=== PATIENT | female | born 1975 | race Caucasian/White ===

== ENCOUNTER 2019-05-02 07:15 | Inpatient (IN) | payer BC ==
[~2019-05-02 07:15] MED LIST: cefOXitin 2 GM Vial ONE
[2019-05-02] MEDS ORDERED: fentaNYL 250 MCG/5 ML SDV ONE ×3 (09:28→14:07)
[2019-05-02] MEDS ORDERED: Glycopyrrolate 0.2 MG/ML 5 ML MDV ONE (09:29)
[2019-05-02] MEDS ORDERED: Ondansetron 4 MG/2 ML SDV ONE (09:29)
[2019-05-02] MEDS ORDERED: Dexamethasone 4 MG/ML SDV ONE (09:29)
[2019-05-02] MEDS ORDERED: Propofol 200 MG/20 ML SDV ONE (09:29)
[2019-05-02] MEDS ORDERED: Rocuronium 50 MG/5 ML Vial ONE (09:29)
[2019-05-02] MEDS ORDERED: Neostigmine Methylsulfate 1 MG/ML 5 ML Syringe ONE (09:29)
[2019-05-02] MEDS ORDERED: Succinylcholine 200 MG/10 ML MDV ONE (09:29)
[2019-05-02] MEDS ORDERED: Celecoxib 200 MG Cap PO ONE (09:30)
[2019-05-02] MEDS ORDERED: Scopolamine 1.5 MG Transdermal Patch TOP SCH (09:30)
[2019-05-02] MEDS ORDERED: Gabapentin 300 MG Cap PO ONE (09:30)
[2019-05-02] MEDS ORDERED: Lactated Ringers 1,000 ML ONE ×2 (09:30→14:41)
[2019-05-02] MEDS ORDERED: Acetaminophen 500 MG Tab PO ONE (09:30)
[2019-05-02 10:23] LABS: HEMOGLOBIN A1C 6.8 % (4.5-6.2)
[2019-05-02] MEDS ORDERED: Dextrose 5%-Lactated Ringers 1,000 ML IV SCH ×2 (10:30→17:15)
[2019-05-02] MEDS: cefOXitin 2 GM in Sodium Chloride 0.9% 50 ML IV ONE ×2 (11:14→17:17)
[2019-05-02] MEDS ORDERED: Lidocaine 2% 100 MG/5 ML Syringe IVPUSH SCH (11:15)
[2019-05-02] MEDS ORDERED: Lidocaine 0.4%/D5W 2 GM/500 ML BAG IV SCH (11:15)
[2019-05-02] MEDS ORDERED: Ketamine 50 MG in Sodium Chloride 0.9% 49.5 ML IV SCH (11:15)
[2019-05-02] MEDS ORDERED: Ketamine 500 MG/5 ML MDV IV SCH (11:15)
[2019-05-02] MEDS ORDERED: Labetalol 20 MG/4 ML Syringe IVPUSH PRN (17:12)
[2019-05-02] MEDS ORDERED: diphenhydrAMINE 50 MG/ML SDV IVPUSH PRN (17:12)
[2019-05-02] MEDS ORDERED: Glucagon,Human Recombinant 1 MG Vial IM PRN (17:12)
[2019-05-02] MEDS ORDERED: 50% Dextrose in Water 50 ML Syringe IVPUSH PRN (17:12)
[2019-05-02] MEDS ORDERED: HYDROmorphone 1 MG/ML Syringe IV PRN (17:12)
[2019-05-02] MEDS ORDERED: Albuterol/Ipratropium 3.0-0.5 MG/3 ML Neb Soln INH PRN (17:12)
[2019-05-02] MEDS ORDERED: hydrOXYzine HCL 100 MG/2 ML SDV IM PRN (17:12)
[2019-05-02] MEDS ORDERED: Lactated Ringers 1,000 ML IV SCH (17:15)
[2019-05-02] MEDS: Ondansetron 4 MG/2 ML SDV IVPUSH PRN (17:45)
[2019-05-02] MEDS ORDERED: MVI, Adult with Vitamin K 10 ML, Thiamine 200 MG, Chromium/Copper/Mang/Selen/Zn 1 ML in... IV SCH ×4 (18:00)
--- NOTE | 2019-05-02 18:40 | CRLCR ---
INDICATION: Line placement TECHNIQUE: Frontal view of the chest. COMPARISON: None FINDINGS/IMPRESSION: 1. Left subclavian central venous line is in place with catheter tip in the distal SVC. 2. There is mild left basilar atelectasis. The right lung is clear. There is no sizable pleural effusion or pneumothorax. Dictated by Anh Duenas MD @ May 02 2019 6:39PM Signed by Dr. Anh Duenas @ May 02 2019 6:39PM
[2019-05-02] MEDS: cefOXitin 2 GM in Sodium Chloride 0.9% 50 ML IV SCH (19:15)
[2019-05-02] MEDS: Heparin Sodium 5,000 Units/ML Vial SUBCUT SCH (20:47)
[2019-05-02] MEDS: metFORMIN 500 MG Tab PO SCH ×2 (20:48→20:59)
[2019-05-02] MEDS: Acetaminophen 325 MG Tab PO SCH ×2 (20:48→20:59)
[2019-05-02] MEDS: Pantoprazole 40 MG Vial IVPUSH SCH (20:49)
[2019-05-02] MEDS: Gabapentin 250 MG/5 ML Solution ML 470 ML Bottle PO SCH (20:49)
[2019-05-02] MEDS: Metoclopramide 10 MG/2 ML SDV IVPUSH PRN (20:55)
[2019-05-02] MEDS: Insulin Lispro 100 Unit/ML 3 ML KwikPen SUBCUT PRN (22:32)
[2019-05-03] MEDS: cefOXitin 2 GM in Sodium Chloride 0.9% 50 ML IV SCH ×5 (00:27→23:34)
[2019-05-03] MEDS: Acetaminophen 325 MG Tab PO SCH ×4 (00:29→17:16)
[2019-05-03] MEDS ORDERED: Iopamidol 612 MG/ML 50 ML SDV PO ONE (02:49)
[2019-05-03] MEDS: Insulin Lispro 100 Unit/ML 3 ML KwikPen SUBCUT PRN ×3 (05:25→21:38)
[2019-05-03] MEDS: Heparin Sodium 5,000 Units/ML Vial SUBCUT SCH ×3 (05:27→20:06)
[2019-05-03] MEDS ORDERED: MVI, Adult with Vitamin K 10 ML, Thiamine 200 MG, Chromium/Copper/Mang/Selen/Zn 1 ML in... IV SCH ×4 (07:24)
[2019-05-03] MEDS: Ondansetron 4 MG/2 ML SDV IVPUSH PRN (08:36)
[2019-05-03] MEDS ORDERED: Liraglutide (rDNA Origin) 0.6 MG/0.1 ML 3 ML Pen SUBCUT ONE (09:00)
[2019-05-03] MEDS: Celecoxib 200 MG Cap PO SCH (09:05)
[2019-05-03] MEDS: Gabapentin 250 MG/5 ML Solution ML 470 ML Bottle PO SCH ×3 (10:07→20:11)
[2019-05-03] MEDS: SCOPOLAMINE PATCH CHECK TOP SCH (10:07)
--- NOTE | 2019-05-03 10:40 | CRLCR ---
Final Report: Indication: Post Jacques-en-Y gastric bypass Technique: Abdomen 4 views Comparison: None Findings/Impression: Ingested oral contrast flows easily through the gastric bypass. Visualized GI tract is normal in caliber. No sign of leak. A drainage catheter is in the left upper quadrant. Dictated by Az Mayo MD @ May 03 2019 6:56AM (Electronic Signature) MTDD
[2019-05-03] MEDS: Metoclopramide 10 MG/2 ML SDV IVPUSH PRN (11:07)
--- NOTE | 2019-05-03 11:25 | PN ---
DATE OF SERVICE: 05/03/2019 The patient has been afebrile with stable vital signs. She did have some emesis overnight, and the upper GI x-ray shows things emptying out of the stomach through the duodenoileostomy but quite slowly, and we will back down to ice chips and some sips of clear liquids for today. With this, we are not going to get oral diabetic agents in satisfactorily. Blood sugars in the 200s this morning, and we will give her some Victoza this morning and then reassess tomorrow. We will obtain an abdominal x-ray tomorrow morning, which will give us some idea how much we have in the way of gastric distention. Otherwise, we will back down the IV rate to 125 with plain LR and maximize activity and work with pulmonary toilet. Brady Murillo MD /[id number]
[2019-05-03] MEDS: Lactated Ringers 1,000 ML IV SCH (12:43)
[2019-05-03] MEDS: Pantoprazole 40 MG Vial IVPUSH SCH (17:06)
[2019-05-03] MEDS: HYDROmorphone 0.5 MG/0.5 ML Syringe IVPUSH PRN (20:11)
[2019-05-04] MEDS: Acetaminophen 325 MG Tab PO SCH ×5 (00:59→23:03)
[2019-05-04] MEDS: HYDROmorphone 0.5 MG/0.5 ML Syringe IVPUSH PRN ×4 (01:03→23:06)
[2019-05-04] MEDS: Lactated Ringers 1,000 ML IV SCH ×2 (02:36→10:42)
[2019-05-04] MEDS: Heparin Sodium 5,000 Units/ML Vial SUBCUT SCH ×3 (04:04→19:24)
[2019-05-04] MEDS: Insulin Lispro 100 Unit/ML 3 ML KwikPen SUBCUT PRN ×2 (04:17→11:33)
--- NOTE | 2019-05-04 05:06 | CRLCR ---
INDICATION: Gastric distension COMPARISON: Limited upper GI from yesterday at 0304 hours FINDINGS: Erect and supine films of the abdomen were obtained. Again seen is the Chilango-Marks drain located in the left upper quadrant. The previously seen ingested oral contrast has passed into the colon, primarily collected in the cecum. There is no sign of extravasation of any of the contrast into the abdominal cavity. There is no sign of distention of the small bowel or colon to suggest obstruction or ileus. There is no sign of free air or distinct mass. The osseous structures are normal in appearance for the patient`s age. The lung bases are clear. IMPRESSION: No sign of obstruction or ileus. Appropriate passage of oral contrast into the colon. No sign of free air. Continued satisfactory positioning of Chilango-Marks drain in the left upper quadrant. Dictated by Richard Conde MD @ May 04 2019 5:00AM Signed by Dr. Richard Conde @ May 04 2019 5:04AM
[2019-05-04] MEDS: Lisinopril 20 MG Tab PO SCH (08:14)
[2019-05-04] MEDS: Hydrochlorothiazide 25 MG Tab PO SCH (08:15)
[2019-05-04] MEDS: SCOPOLAMINE PATCH CHECK TOP SCH (08:15)
[2019-05-04] MEDS: Celecoxib 200 MG Cap PO SCH (08:16)
[2019-05-04] MEDS: Gabapentin 250 MG/5 ML Solution ML 470 ML Bottle PO SCH ×3 (08:28→21:05)
--- NOTE | 2019-05-04 08:49 | PN ---
DATE OF SERVICE: 05/04/2019 The patient was nauseated and had some numbness since yesterday. This appears to be resolving overnight. She is taking in some ice chips and her own saliva, and has not had any further emesis, and the sense of nausea seems to have abated. Overall, it was apparent that the duodenal ileostomy was probably opening up. We will start her on step-1 diet today, beginning with just med cups at a time. Otherwise, we will let the patient shower. Blood sugars are running in the upper 100s to low 200s. We will reorder the Victoza 1.8 mg subcu today. If oral intake is able to be established, we can probably start the metformin then tomorrow. Brady Murillo MD /[id number]
[2019-05-04] MEDS ORDERED: Liraglutide (rDNA Origin) 0.6 MG/0.1 ML 3 ML Pen SUBCUT ONE (09:00)
[2019-05-04] MEDS ORDERED: Cyanocobalamin (Vitamin B12) 1,000 MCG/ML SDV IM ONE (09:00)
[2019-05-04] MEDS: MVI, Adult with Vitamin K 10 ML, Thiamine 200 MG, Chromium/Copper/Mang/Selen/Zn 1 ML in... IV SCH ×4 (15:25)
[2019-05-04] MEDS: Pantoprazole 40 MG Delayed-Release Granules 1 Packet PO SCH (15:29)
[2019-05-05] MEDS: Heparin Sodium 5,000 Units/ML Vial SUBCUT SCH ×3 (03:34→19:50)
[2019-05-05] MEDS: HYDROmorphone 0.5 MG/0.5 ML Syringe IVPUSH PRN ×2 (03:41→22:48)
[2019-05-05] MEDS: Lactated Ringers 1,000 ML IV SCH (04:18)
[2019-05-05] MEDS: Acetaminophen 325 MG Tab PO SCH ×4 (06:03→23:56)
[2019-05-05] MEDS: Celecoxib 200 MG Cap PO SCH (07:21)
[2019-05-05] MEDS: Hydrochlorothiazide 25 MG Tab PO SCH (08:20)
[2019-05-05] MEDS: Lisinopril 20 MG Tab PO SCH (08:20)
[2019-05-05] MEDS: Gabapentin 250 MG/5 ML Solution ML 470 ML Bottle PO SCH ×3 (08:22→20:51)
[2019-05-05] MEDS: metFORMIN 500 MG/5 ML PO SCH ×2 (10:42→17:28)
--- NOTE | 2019-05-05 11:05 | CRLUS ---
INDICATION: Left arm swelling TECHNIQUE: Ultrasound venous duplex upper left extremity. Compression venous exam was performed using diaz-scale, color Doppler, and spectral Doppler imaging. COMPARISON: None. FINDINGS: The left internal jugular, subclavian, and axillary veins are patent with normal waveforms. The brachial and basilic veins are fully compressible. Thrombus is present in the cephalic vein in the upper arm. IMPRESSION: Venous thrombus present in the left cephalic vein in the upper arm. Remainder of the veins in the left upper extremity are patent. Dictated by Az Mayo MD @ May 05 2019 11:00AM Signed by Dr. Az Mayo @ May 05 2019 11:03AM
[2019-05-05] MEDS: Pantoprazole 40 MG Delayed-Release Granules 1 Packet PO SCH (15:52)
[2019-05-05] MEDS: MVI, Adult with Vitamin K 10 ML, Thiamine 200 MG, Chromium/Copper/Mang/Selen/Zn 1 ML in... IV SCH ×4 (15:55)
[2019-05-06] MEDS: Heparin Sodium 5,000 Units/ML Vial SUBCUT SCH ×3 (03:45→20:28)
[2019-05-06] MEDS: Acetaminophen 325 MG Tab PO SCH ×4 (05:49→23:14)
[2019-05-06] MEDS: Lactated Ringers 1,000 ML IV SCH (05:50)
[2019-05-06] MEDS: Celecoxib 200 MG Cap PO SCH (08:02)
[2019-05-06] MEDS: Hydrochlorothiazide 25 MG Tab PO SCH (08:03)
[2019-05-06] MEDS: Lisinopril 20 MG Tab PO SCH (08:03)
[2019-05-06] MEDS ORDERED: Ondansetron 4 MG Tab.DIS PO PRN (08:12)
[2019-05-06] MEDS: Gabapentin 250 MG/5 ML Solution ML 470 ML Bottle PO SCH ×3 (08:21→20:30)
[2019-05-06] MEDS: metFORMIN 500 MG/5 ML PO SCH (11:46)
--- NOTE | 2019-05-06 16:09 | PN ---
DATE OF SERVICE: 05/06/2019 SUBJECTIVE: Amy has superficial phlebitis from IV site. The nausea has improved. Sleeve gastrectomy part of duodenal switch is slow to empty. She has had 3 bowel movements. She has been up and ambulating. Does report low back ache, which is chronic. Temperature max 99.4. Oral intake has improved to 980. Urine output 2300. OPAL drain put out 170 mL of a light pink drainage. REVIEW OF SYSTEMS: Remainder of review of systems negative for any pertinent positives and negatives. OBJECTIVE: GENERAL: Amy Jenkins is a pleasant 44-year-old female. She is alert and orientated. VITAL SIGNS: TPR 98.5, 82, 16, and blood pressure 149/79. HEENT: Negative. NECK: Supple. HEART: Regular rate and rhythm. LUNGS: Clear. ABDOMEN: Incisions look good. OPAL drain intact. Abdominal binder has been on. EXTREMITIES: Without peripheral edema. ASSESSMENT: Laparoscopic duodenal switch. PLAN: 1. Discontinue metformin. 2. Continue to hold Victoza. 3. to evaluate congenital and acquired prothrombotic defects. 4. IV infiltrated, to leave IV out. 5. We will evaluate p.r.n. or in a.m. 6. Plan discharge in a.m. Belinda Franco PA-C /[id number]
[2019-05-06] MEDS: Pantoprazole 40 MG Delayed-Release Granules 1 Packet PO SCH (16:43)
[2019-05-07] MEDS: Heparin Sodium 5,000 Units/ML Vial SUBCUT SCH (04:58)
[2019-05-07] MEDS: Acetaminophen 325 MG Tab PO SCH (05:08)
[2019-05-07] MEDS: Celecoxib 200 MG Cap PO SCH (08:26)
[2019-05-07] MEDS: Hydrochlorothiazide 25 MG Tab PO SCH (08:27)
[2019-05-07] MEDS: Lisinopril 20 MG Tab PO SCH (08:28)
[2019-05-07] MEDS: Gabapentin 250 MG/5 ML Solution ML 470 ML Bottle PO SCH (09:29)
--- NOTE | 2019-05-09 10:49 | OR ---
DATE OF PROCEDURE: 05/02/2019 SURGEON: Brady Murillo MD PREOPERATIVE DIAGNOSIS: Morbid obesity. POSTOPERATIVE DIAGNOSES: 1. Morbid obesity. 2. Marked hepatomegaly. 3. Paraesophageal diaphragmatic hernia. 4. Mediastinal lipoma. OPERATIVE PROCEDURE: Diagnostic laparoscopy with: 1. Laparoscopic duodenal switch (93230). 2. Paco-Cut needle liver biopsy (44743). 3. Repair of paraesophageal diaphragmatic hernia (73193). 4. Excision of mediastinal lipoma (60044). ANESTHESIA: General. [employer]ACHINE: Belinda Franco PA-C, and JACY Campbell3. INDICATION FOR PROCEDURE: This is a 44-year-old presenting with progressively worsening morbid obesity with a longstanding type 2 diabetes mellitus. Given this, she wished to proceed with a duodenal switch. Potential risks of the procedure including bleeding, infection, leaks from GI tract closures, problems with bowel obstruction over time, as well as possibility of cardiopulmonary, septic, or hemorrhagic complications leading to were all discussed, and the patient wishes to proceed. DETAILS OF PROCEDURE: The patient was taken to the operating room after general endotracheal anesthesia was induced and placed in a lithotomy position. Pepper catheter was inserted, and the abdomen prepped and draped. At 20 cm inferior and 5 cm left of the xiphoid process, a transverse incision was made and peritoneal cavity entered under direct vision with an Optiview trocar, inflated to 15 mmHg pressure of CO2. Laparoscope was then reinserted. No underlying trocar insertion site injuries were seen. Bilateral transversus abdominis plane blocks were then placed, and at this point, 5 additional trocars were placed across upper and mid abdomen. Eventually, 3 more trocars were placed to facilitate the procedure, as the size of the liver caused the overall viscera to be somewhat below the abdomen as well as to the abdominal wall. The patient had marked hepatomegaly with liver volume being grossly roughly 3 times normal and Paco-Cut needle biopsy was obtained from left lobe of liver. Minimal bleeding from the biopsy site was seen and the procedure then concluded. The liver was then retracted anteriorly. The patient was noted to have a paraesophageal diaphragmatic hernia. This contained some perigastric fat and some of the gastric fundus. This was reduced and the peritoneum overlying it was incised and reflected downward. During the course of the dissection, a roughly 4 cm mediastinal lipoma was encountered which was then excised as well. The diaphragmatic hernia was repaired anteriorly with 0 Ethibond sutures, reinforced with PTFE pledgets. Beginning in the mid greater curvature, the omentum was then divided away from the greater curvature of the stomach initially in the proximal direction. This went up into the short gastric vessels, including the highest and posterior short gastric vessels. The left emilie of diaphragm was then more or less skeletonized to allow adequate mobilization of the medial gastric fundus to avoid the cul-de-sac and the stomach in that area. The dissection then continued distally to the point of around 4 cm distal to the pylorus. The small bowel previously had been mobilized upward 300 cm proximal to the ileocecal valve, so at that point, we were confident that the small bowel could be brought up to the divided duodenum. Given this, the duodenum was divided and reinforced with KURT purple load about 4 cm distal to the pylorus and some of the lesser omental tissue on the antrum and the proximal-most duodenum was also divided, which allowed a downward mobilization of the divided duodenum and the antrum. The sleeve gastrectomy excision was accomplished, and this began around 6 cm proximal to the pylorus and came under the incisura angularis with care taken to avoid overtightening of that area. A 40-Italian chest tube was then placed orally along the lesser curvature of the stomach, and the remainder of the sleeve gastrectomy staple lines were made with reinforced black or reinforced purple loads, and the gastric specimen was set off to the side. The staple line was inspected and found to be intact in all areas. The small bowel, which had been premeasured, was then brought up adjacent to the divided duodenum. Two stay sutures were initially placed on the superior end of the duodenum and inferiorly with 3-0 Vicryl sutures. These were placed to the side of the ileum slightly posterior to the antimesenteric border. At this point, the initial posterior row of the sutures, which was running 3-0 Vicryl stitch, was placed, beginning at the superior aspect of the duodenum. These sutures included bites of the reinforced duodenal division line and again the area posterior to the antimesenteric border on the ileum. Once this was brought down to the inferior aspect of the duodenum, enterotomies were made in the duodenum and the antimesenteric border of the ileum, and initially then the inner layer posteriorly was placed again with a running 3-0 Vicryl stitch. This then curved around the inferior aspect and slightly onto the anterior aspect of the anastomosis. Beginning on the superior end, the gastric tube was then restarted and brought up along the superior aspect and then on the anterior aspect of the duodenoileostomy until the 2 inner layers were then tied. The outer layer was then continued inferiorly, covering around the front, and then a new stitch started and tied to the lateral layer stitch superiorly and the outer layer seromuscular suture was then placed and brought down to more inferior suture, which was then also tied together. The mesentry of the small bowel was limited in terms of internal mobility, and at this point, we decided to not divide the ileum and reserve that for a secondary procedure, if necessary, for the safety of preserving the present anastomosis. The latter was then reinforced with fibrin sealant. Initially leak test did not show any irrigating into the ileum and the gastroscope was placed and this was brought up to the duodenoileostomy with air insufflation easily and with distention of the sleeve gastrectomy and the duodenoileostomy. No leaks were seen as these areas were simultaneously submerged with antibiotic-containing saline solution. One additional suture between the ileum proximal to the anastomosis was taken up to the distal antrum and then two additional sutures were placed between the bowel just proximal to that and the adjacent omentum to create any angulation facilitating a distal migration of the ingested contents coming out of the stomach. At this point, the gastrostomy tube was retrieved. No further problems were noted. Single Chilango-Marks drain was then placed through the left lateral trocar site and positioned up against the esophagogastric junction and from there up into the splenic fossa with no additional problems noted. Trocars were then sequentially removed and the incision closed with some 4-0 Vicryl stitch, which was also used to affix the drain. The patient was taken to the recovery room in satisfactory condition. There were no evident complications. Brady Murillo MD /[id number]
--- NOTE | 2019-05-09 10:57 | DISCH ---
FINAL DIAGNOSES: 1. Morbid obesity. 2. Marked hepatomegaly. 3. Paraesophageal diaphragmatic hernia associated with mediastinal lipoma. 4. Limited peripheral venous access. 5. Initial delay in emptying from stomach following duodenal switch. 6. Superficial thrombophlebitis of the left cephalic vein. 7. Type 2 diabetes mellitus, appears to be in remission in the early postoperative phase. 8. Obstructive sleep apnea, on CPAP. 9. History of hypertension. OPERATIVE PROCEDURES: Done on 05/02/2019: 1. Diagnostic laparoscopy with: a. Duodenal switch. b. Paco-Cut needle liver biopsy. c. Repair of paraesophageal diaphragmatic hernia. d. Excision of mediastinal lipoma. 2. Insertion of left subclavian vein triple-lumen catheter. SUMMARY: This is a 44-year-old presenting with morbid obesity with a BMI of 52 and longstanding type 2 diabetes mellitus, until recently had been poorly controlled. After preop evaluation and discussion, she wished to proceed with a duodenal switch. This was done on the date of admission with the patient also noted to have marked hepatomegaly requiring a liver biopsy and repair of the paraesophageal hernia and mediastinal lipoma. She had very limited peripheral venous access and triple-lumen catheter was placed via the left subclavian vein. Postoperatively, the patient had some delay in emptying of her stomach through the duodenoileostomy. This appeared to be improved, and she is now maintaining adequate oral intake. Plan will be to discharge home. She will be staying on a liquid diet for the next month and should stay on purely liquids until the first appointment, i.e. no soft cereal and such. The patient developed some arm swelling on the left side and, on ultrasound, was noted to have a superficial thrombophlebitis involving the left cephalic vein. The triple-lumen catheter was removed and this appeared to be resolving. At this point, her type 2 diabetes appeared to be in remission with the blood sugars now over the last 24 hours running between 118 and 154 off all diabetic medications. At the time of discharge, she will be stopping the Jardiance, metformin, and Victoza, off all diabetic medications. Continue the aspirin 81 mg daily, Lipitor 20 mg daily, and lisinopril/hydrochlorothiazide 20/25 one daily, and will be taking Tylenol 650 p.o. q.i.d. p.r.n., Celebrex 200 mg daily x5 days and then p.r.n., and she will be instructed to hold her vitamins until the first appointment, which will be with Belinda Franco at [facility] on 05/12/2019.
--- NOTE | 2019-05-09 11:33 | PN ---
DATE OF SERVICE: 05/05/2019 The patient has been afebrile with stable vital signs. Oral intake is still running around 360, but she has been moving her bowels and generally feels somewhat better. Blood sugars have been down as low as in the 160s, and I think we will hold the Victoza and switch over to oral metformin today. That would probably be preferable to go home on. She does have some swelling in the left arm, and with the left subclavian catheter in place, we will need to obtain a venous duplex scan and anticoagulate the patient and remove the catheter, if that happens to be showing a DVT. Brady Murillo MD /[id number]
== END 2019-05-07 11:27 | disposition home or self-care (01) | DRG 403 ==
LOC: EDSTATUS 07:15 → JP.SDS 09:31 → JP.MS 09:31
PROVIDERS: ADMIT Surgery; ATTEND Surgery
PROC: 0DB64Z3 Excision of Stomach, Percutaneous Endoscopic Approach, Vertical (ICD-10-PCS; principal; 2019-05-02)
PROC: 0FB24ZX Excision of Left Lobe Liver, Percutaneous Endoscopic Approach, Diagnostic (ICD-10-PCS; 2019-05-02)
PROC: 0JB63ZZ Excision of Chest Subcutaneous Tissue and Fascia, Percutaneous Approach (ICD-10-PCS; 2019-05-02)
PROC: 0BQT4ZZ Repair Diaphragm, Percutaneous Endoscopic Approach (ICD-10-PCS; 2019-05-02)
PROC: 0D194ZB Bypass Duodenum to Ileum, Percutaneous Endoscopic Approach (ICD-10-PCS; 2019-05-02)
DX: E66.01 Morbid (severe) obesity due to excess calories (principal); R16.0 Hepatomegaly, not elsewhere classified; I82.612 Acute embolism and thrombosis of superficial veins of left upper extremity; K44.9 Diaphragmatic hernia without obstruction or gangrene; D17.4 Benign lipomatous neoplasm of intrathoracic organs; E11.9 Type 2 diabetes mellitus without complications; E78.5 Hyperlipidemia, unspecified; G47.33 Obstructive sleep apnea (adult) (pediatric); I10 Essential (primary) hypertension; Z79.82 Long term (current) use of aspirin; Z68.43 Body mass index [BMI] 50.0-59.9, adult; Z79.84 Long term (current) use of oral hypoglycemic drugs; Z79.899 Other long term (current) drug therapy
CPT/HCPCS: 36415; 71045; 74019; 74240; 80053; 81025; 82962; 83036; 83090; 83735; 83880; 84100; 85025; 86850; 86900; 86901; 88304; 88307; 88313; 93971-LT; 94762; A9270-GY; C9113; J0171; J0330; J0694; J1100; J1170; J1642; J1644; J1815; J1815-GY; J2001; J2405; J2704; J2710; J2765; J2795; J3010; J3410; J3411; J3420; J3490; J7050; J7120; J7121; Q9967